=== PATIENT | male | born 1945 | race Caucasian/White ===

== ENCOUNTER → 2017-05-06 | Outpatient (CLI) | payer MEDICARE ==
[~2017-05-06] MED LIST: AMLODIPINE BESY10 MG PO; B12,B-12,B 12500 MC1 PO; MELOXICAM7.5 MG PO; PROTONIX40 MG PO; SIMVASTATIN20 MG PO
[2017-05-06 10:53] LABS: BASO % 0.5 % (0.0-1.0); EOS # 0.1 10*3/uL (0.0-0.4); EOS % 1.6 % (1.0-4.0); HEMATOCRIT 45.6 % (42.0-52.0); LYMPH % 34.1 % (27.0-41.0); MEAN CELL VOLUME 93.4 fl (80.0-94.0); MEAN CORPUSCULAR HGB 32.8 pg (27.0-31.0); MEAN CORPUSCULAR HGB CONC 35.1 g/dl (33.0-37.0); MEAN PLATELET VOLUME 10.8 fl (9.6-12.3); MONO # 0.4 10*3/uL (0.1-1.0); MONO % 6.1 % (3.0-9.0); NEUT # 3.3 10*3/uL (2.3-7.9); NEUT % 57.5 % (47.0-73.0); PLATELET COUNT AUTOMATED 199 10*3/uL (130-400); RED BLOOD COUNT 4.88 10*6/uL (4.50-5.90); RED CELL DISTRI WIDTH 12.9 % (0-14.5); WHITE BLOOD COUNT 5.8 10*3/uL (4.8-10.8)
[2017-05-06 11:24] LABS: ALBUMIN 4.5 gm/dl (3.1-4.5); ALKALINE PHOSPHATASE 80 U/L (45-117); BUN 13 mg/dl (7-24); CHLORIDE 105 mmol/L (98-107); CHOLESTEROL 187 mg/dL (<200); HDL CHOLESTEROL 51 mg/dl (40-60); LDL CHOLESTEROL 101 mg/dL (9-159); POTASSIUM 3.6 mmol/L (3.5-5.1); SGOT/AST 24 IU/L (3-35); SGPT/ALT 23 U/L (12-78); SODIUM 139 mmol/L (136-145); TOTAL PROTEIN 8.2 gm/dL (6.4-8.2); TRIGLYCERIDES 174 mg/dl (<150); VLDL CHOLESTEROL 35 mg/dL (6-40)
== END | disposition home or self-care (01) ==
LOC: LAB 10:27
PROVIDERS: Nurse Practitioner Primary Care
DX: R07.89 Other chest pain (principal); I10 Essential (primary) hypertension; E78.1 Pure hyperglyceridemia

== ENCOUNTER → 2018-06-16 | Outpatient (CLI) | payer MEDICARE ==
[2018-06-16 10:28] LABS: BASO % 0.4 % (0.0-1.0); EOS # 0.1 10*3/uL (0.0-0.4); EOS % 2.7 % (1.0-4.0); HEMATOCRIT 45.4 % (42.0-52.0); HEMOGLOBIN 15.7 g/dl (14.0-18.0); LYMPH # 2.2 10*3/uL (1.3-4.4); LYMPH % 42.5 % (27.0-41.0); MEAN CORPUSCULAR HGB 32.8 pg (27.0-31.0); MEAN CORPUSCULAR HGB CONC 34.6 g/dl (33.0-37.0); MEAN PLATELET VOLUME 11.4 fl (9.6-12.3); MONO # 0.4 10*3/uL (0.1-1.0); MONO % 7.2 % (3.0-9.0); NEUT # 2.4 10*3/uL (2.3-7.9); PLATELET COUNT AUTOMATED 203 10*3/uL (130-400); RED BLOOD COUNT 4.78 10*6/uL (4.50-5.90); RED CELL DISTRI WIDTH 12.9 % (0-14.5); WHITE BLOOD COUNT 5.1 10*3/uL (4.8-10.8)
[2018-06-16 10:52] LABS: ALBUMIN 4.3 gm/dl (3.1-4.5); ALKALINE PHOSPHATASE 83 U/L (45-117); BUN 12 mg/dl (7-24); CHLORIDE 106 mmol/L (98-107); CHOLESTEROL 155 mg/dL (<200); CREATININE 0.77 mg/dL (0.70-1.30); HDL CHOLESTEROL 50 mg/dl (40-60); LDL CHOLESTEROL 85 mg/dL (9-159); POTASSIUM 3.6 mmol/L (3.5-5.1); SGOT/AST 18 IU/L (3-35); SGPT/ALT 20 U/L (12-78); SODIUM 140 mmol/L (136-145); TOTAL PROTEIN 7.8 gm/dL (6.4-8.2); TRIGLYCERIDES 100 mg/dl (<150); VLDL CHOLESTEROL 20 mg/dL (6-40)
== END | disposition home or self-care (01) ==
LOC: LAB 09:48
PROVIDERS: Family Medicine
DX: I10 Essential (primary) hypertension (principal); E78.1 Pure hyperglyceridemia; Z79.899 Other long term (current) drug therapy

== ENCOUNTER 2019-09-22 07:42 | Emergency (ER) | payer MEDICARE ==
[~2019-09-22] VITALS: Ht 177.8 cm; Wt 74.8 kg
[2019-09-22 09:11] LABS: BILIRUBIN NEGATIVE (NEGATIVE); BLOOD 2+ (NEGATIVE); CLARITY SL CLOUDY (CLEAR); COLOR YELLOW (YELLOW); GLUCOSE 2+ (NEGATIVE); KETONE 1+ (NEGATIVE); PH 7.5 (5.0-9.0)
[2019-09-22 09:12] LABS: LEUKO ESTERASE NEGATIVE (NEGATIVE); NITRITE NEGATIVE (NEGATIVE); UROBILINOGEN 0.2 E.U./dl (0.2-1.0)
[2019-09-22 09:13] LABS: RBC 21-30 rbc/hpf (0-2); WBC 0-2 wbc/hpf (0-5)
[2019-09-22 09:23] LABS: BASO % 0.3 % (0.0-1.0); EOS % 0.3 % (1.0-4.0); HEMATOCRIT 48.3 % (42.0-52.0); HEMOGLOBIN 17.1 g/dl (14.0-18.0); MEAN CELL VOLUME 92.7 fl (80.0-94.0); MEAN CORPUSCULAR HGB 32.8 pg (27.0-31.0); MEAN CORPUSCULAR HGB CONC 35.4 g/dl (33.0-37.0); MONO # 0.5 10*3/uL (0.1-1.0); MONO % 4.6 % (3.0-9.0); NEUT # 8.2 10*3/uL (2.3-7.9); NEUT % 84.5 % (47.0-73.0); PLATELET COUNT AUTOMATED 236 10*3/uL (130-400); RED BLOOD COUNT 5.21 10*6/uL (4.50-5.90); RED CELL DISTRI WIDTH 12.3 % (0-14.5); WHITE BLOOD COUNT 9.7 10*3/uL (4.8-10.8)
[2019-09-22 09:36] LABS: ACT PARTIAL THROMBO TIME 26.2 SECONDS (20.0-32.1); INTERNATIONAL NORM RATIO 0.9 (2.0-3.5)
[2019-09-22 09:43] LABS: ALBUMIN 4.4 gm/dl (3.1-4.5); ALKALINE PHOSPHATASE 109 U/L (45-117); BUN 9 mg/dl (7-24); CHLORIDE 108 mmol/L (98-107); CREATININE 0.91 mg/dL (0.70-1.30); LIPASE 59 U/L (73-393); POTASSIUM 3.4 mmol/L (3.5-5.1); SGOT/AST 22 IU/L (3-35); SGPT/ALT 30 U/L (12-78); SODIUM 139 mmol/L (136-145); TOTAL PROTEIN 8.4 gm/dL (6.4-8.2)
[2019-09-22 09:44] LABS: TROPONIN I < 0.015 ng/ml (<0.045)
== END 2019-09-22 11:43 | disposition home or self-care (01) ==
LOC: ED 07:42
PROVIDERS: Emergency Medicine
DX: N13.2 Hydronephrosis with renal and ureteral calculous obstruction (principal); E78.5 Hyperlipidemia, unspecified; I10 Essential (primary) hypertension; Z87.442 Personal history of urinary calculi; Z79.899 Other long term (current) drug therapy

== ENCOUNTER → 2019-10-02 | Outpatient (CLI) | payer MEDICARE ==
[2019-10-02 09:23] LABS: BASO % 0.3 % (0.0-1.0); EOS # 0.2 10*3/uL (0.0-0.4); EOS % 2.5 % (1.0-4.0); HEMATOCRIT 47.1 % (42.0-52.0); HEMOGLOBIN 15.9 g/dl (14.0-18.0); LYMPH # 2.3 10*3/uL (1.3-4.4); LYMPH % 37.3 % (27.0-41.0); MEAN CELL VOLUME 96.7 fl (80.0-94.0); MEAN CORPUSCULAR HGB 32.6 pg (27.0-31.0); MEAN CORPUSCULAR HGB CONC 33.8 g/dl (33.0-37.0); MEAN PLATELET VOLUME 11.2 fl (9.6-12.3); MONO # 0.4 10*3/uL (0.1-1.0); MONO % 6.7 % (3.0-9.0); NEUT # 3.2 10*3/uL (2.3-7.9); NEUT % 52.9 % (47.0-73.0); PLATELET COUNT AUTOMATED 252 10*3/uL (130-400); RED BLOOD COUNT 4.87 10*6/uL (4.50-5.90); RED CELL DISTRI WIDTH 12.9 % (0-14.5); WHITE BLOOD COUNT 6.1 10*3/uL (4.8-10.8)
[2019-10-02 09:27] LABS: BILIRUBIN NEGATIVE (NEGATIVE); BLOOD 1+ (NEGATIVE); CLARITY CLEAR (CLEAR); COLOR YELLOW (YELLOW); GLUCOSE NEGATIVE (NEGATIVE); KETONE NEGATIVE (NEGATIVE); LEUKO ESTERASE NEGATIVE (NEGATIVE); NITRITE NEGATIVE (NEGATIVE); PH 7.5 (5.0-9.0); SPECIFIC GRAVITY 1.015 (1.005-1.030); UROBILINOGEN 0.2 E.U./dl (0.2-1.0)
[2019-10-02 09:45] LABS: RBC 0-2 rbc/hpf (0-2)
[2019-10-02 09:47] LABS: ALBUMIN 4.3 gm/dl (3.1-4.5); ALKALINE PHOSPHATASE 101 U/L (45-117); BUN 11 mg/dl (7-24); CHLORIDE 108 mmol/L (98-107); CREATININE 0.97 mg/dL (0.70-1.30); POTASSIUM 3.8 mmol/L (3.5-5.1); SGOT/AST 27 IU/L (3-35); SGPT/ALT 44 U/L (12-78); SODIUM 140 mmol/L (136-145); T3 UPTAKE 29 % (31-39); TOTAL PROTEIN 7.9 gm/dL (6.4-8.2)
[2019-10-12 16:07] LABS: BUSHITE 4.76 ratio (0.00-3.00); CALCIUM OXALATE 6.46 ratio (0.00-6.00); CALCIUM, URINE 16.9 mg/dL (Not Estab.); CITRIC ACID (CITRATE) 501 mg/24 hr (320-1240); CREATININE, URINE 37.5 mg/dL (Not Estab.); CREATININE, URINE 834.4 mg/24 hr (1000.0-2000.0); MAGNESIUM, URINE 5.3 mg/dL (Not Estab.); MONOSODIUM URATE 2.12 ratio (0.00-4.00); OSMOLALITY, URINE 311 (300-900); SODIUM, URINE 174 (58-337); SODIUM, URINE 78 mmol/L (Not Estab.); STRUVITE 0.12 ratio (0.00-1.00); URIC ACID 0.13 ratio (0.00-1.20); pH 24 HR URINE 6.9 (.)
== END | disposition home or self-care (01) ==
LOC: LAB 08:40
PROVIDERS: Urology
DX: N20.0 Calculus of kidney (principal); R53.82 Chronic fatigue, unspecified

== ENCOUNTER → 2019-10-15 | Outpatient (CLI) | payer MEDICARE | END | disposition home or self-care (01) | LOC: US 13:07 | DX: N20.0 Calculus of kidney (principal); N13.30 Unspecified hydronephrosis ==

== ENCOUNTER → 2019-10-29 | Outpatient (CLI) | payer MEDICARE ==
[2019-10-29 12:28] LABS: BASO % 0.4 % (0.0-1.0); EOS # 0.1 10*3/uL (0.0-0.4); EOS % 1.9 % (1.0-4.0); HEMATOCRIT 47.8 % (42.0-52.0); HEMOGLOBIN 16.5 g/dl (14.0-18.0); LYMPH # 2.4 10*3/uL (1.3-4.4); LYMPH % 44.5 % (27.0-41.0); MEAN CORPUSCULAR HGB 32.8 pg (27.0-31.0); MEAN CORPUSCULAR HGB CONC 34.5 g/dl (33.0-37.0); MEAN PLATELET VOLUME 11.6 fl (9.6-12.3); MONO # 0.4 10*3/uL (0.1-1.0); MONO % 6.5 % (3.0-9.0); NEUT # 2.5 10*3/uL (2.3-7.9); NEUT % 46.5 % (47.0-73.0); PLATELET COUNT AUTOMATED 206 10*3/uL (130-400); RED BLOOD COUNT 5.03 10*6/uL (4.50-5.90); RED CELL DISTRI WIDTH 12.6 % (0-14.5); WHITE BLOOD COUNT 5.4 10*3/uL (4.8-10.8)
[2019-10-29 12:45] LABS: ALBUMIN 4.2 gm/dl (3.1-4.5); ALKALINE PHOSPHATASE 92 U/L (45-117); BUN 13 mg/dl (7-24); CHLORIDE 108 mmol/L (98-107); POTASSIUM 3.4 mmol/L (3.5-5.1); SGOT/AST 16 IU/L (3-35); SGPT/ALT 26 U/L (12-78); SODIUM 140 mmol/L (136-145); TOTAL PROTEIN 7.8 gm/dL (6.4-8.2)
[2019-10-29 13:27] LABS: PTH INTACT 111.1 pg/mL (18.5-88.0)
== END | disposition home or self-care (01) ==
LOC: LAB 11:48
PROVIDERS: Nurse Practitioner Family
DX: I10 Essential (primary) hypertension (principal); N20.0 Calculus of kidney; R53.83 Other fatigue; D40.0 Neoplasm of uncertain behavior of prostate

== ENCOUNTER → 2020-10-12 | Outpatient (CLI) | payer MEDICARE | END | disposition home or self-care (01) | LOC: RAD 12:53 | PROVIDERS: ATTEND Family Medicine | DX: M19.032 Primary osteoarthritis, left wrist (principal) ==

== ENCOUNTER → 2020-11-18 | Outpatient (CLI) | payer MEDICARE | END | disposition home or self-care (01) | LOC: LAB 13:10 | PROVIDERS: ATTEND Family Medicine | DX: E87.6 Hypokalemia (principal) ==

== ENCOUNTER 2022-02-08 17:14 | Inpatient (IN) | payer MEDICARE ==
[~2022-02-08] VITALS: Ht 180.3 cm; Wt 75.7 kg
[2022-02-08 17:26] VITALS: BP 135/76
[2022-02-08 21:36] LABS: BASO % 0.2 % (0.0-1.0); HEMATOCRIT 46.3 % (42.0-52.0); LYMPH # 1.1 10*3/uL (1.3-4.4); LYMPH % 8.1 % (27.0-41.0); MEAN CELL VOLUME 94.5 fl (80.0-94.0); MEAN CORPUSCULAR HGB 32.2 pg (27.0-31.0); MEAN CORPUSCULAR HGB CONC 34.1 g/dl (33.0-37.0); MEAN PLATELET VOLUME 11.3 fl (9.6-12.3); MONO # 0.7 10*3/uL (0.1-1.0); MONO % 5.1 % (3.0-9.0); NEUT # 11.5 10*3/uL (2.3-7.9); PLATELET COUNT AUTOMATED 187 10*3/uL (130-400); RED CELL DISTRI WIDTH 12.5 % (0-14.5); WHITE BLOOD COUNT 13.4 10*3/uL (4.8-10.8)
[2022-02-08 21:40] VITALS: BP 128/78
[2022-02-08 21:40] LABS: BILIRUBIN Negative (Negative); BLOOD Negative (Negative); CLARITY Clear (Clear); COLOR Yellow (Yellow); GLUCOSE Negative (Negative); KETONE Trace (Negative); LEUKO ESTERASE Negative (Negative); NITRITE Negative (Negative); PH 6.5 (4.5-8.0)
[2022-02-08 22:00] VITALS: BP 146/82
[2022-02-08 22:02] LABS: ALKALINE PHOSPHATASE 82 U/L (45-117); BUN 16 mg/dl (7-24); CHLORIDE 112 mmol/L (98-107); CREATININE 0.79 mg/dL (0.70-1.30); POTASSIUM 3.9 mmol/L (3.5-5.1); SGOT/AST 20 IU/L (3-35); SGPT/ALT 20 U/L (12-78); SODIUM 142 mmol/L (136-145); TOTAL PROTEIN 7.8 gm/dL (6.4-8.2)
[2022-02-08] MEDS ORDERED: POTASSIUM CHLO20 ME3 PO (22:55)
[2022-02-08] MEDS ORDERED: AMLODIPINE-BEN1 EAC3 PO (22:55)
[2022-02-08] MEDS ORDERED: VITAMIN D31250 MC1 PO (22:55)
[2022-02-09 06:27] LABS: ALKALINE PHOSPHATASE 71 U/L (45-117); BUN 15 mg/dl (7-24); CHLORIDE 110 mmol/L (98-107); CREATININE 0.69 mg/dL (0.70-1.30); POTASSIUM 3.8 mmol/L (3.5-5.1); SGOT/AST 19 IU/L (3-35); SGPT/ALT 18 U/L (12-78); SODIUM 143 mmol/L (136-145); TOTAL PROTEIN 6.9 gm/dL (6.4-8.2)
[2022-02-09 06:29] LABS: BASO % 0.1 % (0.0-1.0); EOS % 0.1 % (1.0-4.0); HEMATOCRIT 43.7 % (42.0-52.0); LYMPH # 1.1 10*3/uL (1.3-4.4); LYMPH % 11.3 % (27.0-41.0); MEAN CORPUSCULAR HGB CONC 34.3 g/dl (33.0-37.0); MEAN PLATELET VOLUME 12.1 fl (9.6-12.3); MONO # 0.6 10*3/uL (0.1-1.0); NEUT % 82.2 % (47.0-73.0); PLATELET COUNT AUTOMATED 176 10*3/uL (130-400); RED BLOOD COUNT 4.55 10*6/uL (4.50-5.90); RED CELL DISTRI WIDTH 12.7 % (0-14.5); WHITE BLOOD COUNT 9.7 10*3/uL (4.8-10.8)
[2022-02-09 09:02] VITALS: BP 110/82
[2022-02-09 09:15] VITALS: BP 106/66
[2022-02-09 09:31] VITALS: BP 132/82
[2022-02-09 12:00] VITALS: BP 149/84
[2022-02-09 16:00] VITALS: BP 123/67
[2022-02-09 20:00] VITALS: BP 136/87
[2022-02-10] VITALS: BP 146/91
[2022-02-10 08:00] VITALS: BP 143/74
[2022-02-10 12:00] VITALS: BP 133/74
[2022-02-10 16:00] VITALS: BP 127/68
[2022-02-10 20:00] VITALS: BP 130/80
[2022-02-11] VITALS: BP 121/72
[2022-02-11 08:00] VITALS: BP 141/6; BP 141/76
[2022-02-11 12:00] VITALS: BP 130/87
[2022-02-11 16:00] VITALS: BP 126/79
[2022-02-11 20:00] VITALS: BP 129/85
[2022-02-12] VITALS: BP 117/71
[2022-02-12 08:00] VITALS: BP 127/70
[2022-02-12 12:00] VITALS: BP 128/74
[2022-02-12] MEDS ORDERED: ASPIRIN ADULT L81 M2 PO (13:12)
[2022-02-12] MEDS ORDERED: VITAMIN D350 MC2 PO (13:12)
[2022-02-12] MEDS ORDERED: HYDROCODONE-AC1 EAC1 PO (13:12)
[2022-02-12 16:00] VITALS: BP 139/79
== END 2022-02-12 17:15 | DRG 481 ==
LOC: ED 17:14 → EDHOLD 21:16 → 4E 21:16
PROVIDERS: Internal Medicine; Physician Assistant; ADMIT Emergency Medicine; ATTEND Emergency Medicine
PROC: 0QH734Z Insertion of Internal Fixation Device into Left Upper Femur, Percutaneous Approach (ICD-10-PCS; principal; 2022-02-09)
DX: S72.002A Fracture of unspecified part of neck of left femur, initial encounter for closed fracture (principal); R65.10 Systemic inflammatory response syndrome (SIRS) of non-infectious origin without acute organ dysfunction; M62.81 Muscle weakness (generalized); E78.5 Hyperlipidemia, unspecified; D64.9 Anemia, unspecified; Z20.822 Contact with and (suspected) exposure to COVID-19; E80.6 Other disorders of bilirubin metabolism; Z60.2 Problems related to living alone; W18.39XA Other fall on same level, initial encounter; B91 Sequelae of poliomyelitis; Z83.79 Family history of other diseases of the digestive system; Z81.1 Family history of alcohol abuse and dependence; Y93.89 Activity, other specified; Y92.89 Other specified places as the place of occurrence of the external cause; Y99.8 Other external cause status

== ENCOUNTER → 2022-02-25 | Outpatient (CLI) | payer MEDICARE ==
[~2022-02-25] MED LIST changes: +AMLODIPINE-BEN1 EAC3 PO; +ASPIRIN ADULT L81 M2 PO; +HYDROCODONE-AC1 EAC1 PO; +POTASSIUM CHLO20 ME3 PO; +VITAMIN D31250 MC1 PO; +VITAMIN D350 MC2 PO
== END | disposition home or self-care (01) ==
LOC: ORTHO 05:11
PROVIDERS: ATTEND Orthopaedic Surgery
DX: S72.002A Fracture of unspecified part of neck of left femur, initial encounter for closed fracture (principal); I70.202 Unspecified atherosclerosis of native arteries of extremities, left leg; M16.12 Unilateral primary osteoarthritis, left hip; K59.00 Constipation, unspecified; X58.XXXA Exposure to other specified factors, initial encounter; Y93.89 Activity, other specified; Y92.89 Other specified places as the place of occurrence of the external cause; Y99.8 Other external cause status

== ENCOUNTER → 2022-04-03 | Outpatient (CLI) | payer MEDICARE | END | disposition home or self-care (01) | LOC: ORTHO 00:55 | PROVIDERS: ATTEND Orthopaedic Surgery | DX: S72.002D Fracture of unspecified part of neck of left femur, subsequent encounter for closed fracture with routine healing (principal); X58.XXXD Exposure to other specified factors, subsequent encounter ==

== ENCOUNTER → 2022-04-12 | Outpatient (CLI) | payer MEDICARE | END | disposition home or self-care (01) | LOC: RAD 13:02 | PROVIDERS: ATTEND Orthopaedic Surgery | DX: M85.851 Other specified disorders of bone density and structure, right thigh (principal); M81.0 Age-related osteoporosis without current pathological fracture ==

== ENCOUNTER → 2022-06-03 | Outpatient (CLI) | payer MEDICARE | END | disposition home or self-care (01) | LOC: ORTHO 03:40 | PROVIDERS: ATTEND Orthopaedic Surgery | DX: S72.034D Nondisplaced midcervical fracture of right femur, subsequent encounter for closed fracture with routine healing (principal); M85.852 Other specified disorders of bone density and structure, left thigh; X58.XXXD Exposure to other specified factors, subsequent encounter ==

== ENCOUNTER → 2022-09-16 | Outpatient (CLI) | payer MEDICARE | END | disposition home or self-care (01) | LOC: LAB 11:25 | PROVIDERS: ATTEND Nurse Practitioner Family | DX: N40.1 Benign prostatic hyperplasia with lower urinary tract symptoms (principal) ==

== ENCOUNTER → 2022-12-02 | Outpatient (CLI) | payer MEDICARE | END | disposition home or self-care (01) | LOC: LAB 11-29 12:15 → ORTHO 01:31 | PROVIDERS: ATTEND Orthopaedic Surgery | DX: M16.12 Unilateral primary osteoarthritis, left hip (principal) ==

== ENCOUNTER → 2024-04-15 | Outpatient (CLI) | payer MEDICARE | END | disposition home or self-care (01) | LOC: CARD 00:52 | PROVIDERS: ATTEND Family Medicine | DX: I35.1 Nonrheumatic aortic (valve) insufficiency (principal); R51.9 Headache, unspecified ==

== ENCOUNTER 2024-11-23 16:27 | Emergency (ER) | payer MEDICARE ==
[~2024-11-23] VITALS: Wt 74.8 kg
[2024-11-23 17:25] LABS: BILIRUBIN Negative (Negative); BLOOD 3+ (Negative); CLARITY Turbid (Clear); COLOR Red (Yellow); GLUCOSE 1+ (Negative); KETONE Negative (Negative); LEUKO ESTERASE 2+ (Negative); NITRITE Negative (Negative); PH 7.5 (4.5-8.0); UROBILINOGEN 0.2 E.U./dl (0.0-1.0)
[2024-11-23 17:39] LABS: BACTERIA 1+; RBC TNTC rbc/hpf (0-2)
[2024-11-23 17:55] LABS: BASO % 0.2 % (0.0-1.0); EOS # 0.1 10*3/uL (0.0-0.4); EOS % 0.6 % (1.0-4.0); HEMATOCRIT 45.9 % (42.0-52.0); MEAN CORPUSCULAR HGB 32.7 pg (27.0-31.0); MEAN CORPUSCULAR HGB CONC 34.4 g/dl (33.0-37.0); MEAN PLATELET VOLUME 11.1 fl (9.6-12.3); MONO # 0.5 10*3/uL (0.1-1.0); MONO % 6.1 % (3.0-9.0); NEUT # 6.8 10*3/uL (2.3-7.9); NEUT % 82.8 % (47.0-73.0); PLATELET COUNT AUTOMATED 191 10*3/uL (130-400); RED BLOOD COUNT 4.83 10*6/uL (4.50-5.90); RED CELL DISTRI WIDTH 12.8 % (0-14.5); WHITE BLOOD COUNT 8.3 10*3/uL (4.8-10.8)
[2024-11-23] MEDS ORDERED: SODIUM CHLORIDE 0.9% 1,000 ML IV ONE (17:55)
[2024-11-23] MEDS ORDERED: fentaNYL CITRATE 100 MCG/2 ML VIAL IV ONE ×2 (17:55→20:25)
[2024-11-23] MEDS ORDERED: Ondansetron Hydrochloride 4 MG/2 ML VIAL IV ONE (17:55)
[2024-11-23] MEDS ORDERED: cefTRIAXone Sodium 1 GM/10 ML SYR IV ONE (18:00)
[2024-11-23 18:06] LABS: ACT PARTIAL THROMBO TIME 25.5 SECONDS (20.0-32.1)
[2024-11-23 18:18] LABS: ALKALINE PHOSPHATASE 90 U/L (46-116); BUN 14 mg/dl (9-23); CHLORIDE 105 mmol/L (98-107); POTASSIUM 3.9 mmol/L (3.4-5.1); SGPT/ALT 12 U/L (5-49); TOTAL PROTEIN 7.6 gm/dL (6.0-8.0)
[2024-11-23] MEDS ORDERED: PERCOCET 5-3251 EACH PO (21:10)
[2024-11-23] MEDS ORDERED: CIPRO500 MG PO (21:10)
[2024-11-23] MEDS ORDERED: Acetaminophen/Oxycodone 5 MG/325 MG TABLET PO ONE (21:15)
== END 2024-11-23 22:01 | disposition home or self-care (01) ==
LOC: ED 16:27
PROVIDERS: Nurse Practitioner Family
DX: N13.2 Hydronephrosis with renal and ureteral calculous obstruction (principal); N39.0 Urinary tract infection, site not specified; I10 Essential (primary) hypertension; E78.5 Hyperlipidemia, unspecified; Z79.82 Long term (current) use of aspirin; Z79.899 Other long term (current) drug therapy; Z98.890 Other specified postprocedural states